=== PATIENT | female | born 1950 | race Caucasian/White ===

== ENCOUNTER 2019-07-12 13:35 | Observation (INO) ==
[2019-07-12 14:19] LABS: Basophils # 0.1 10*3/uL (0.0-0.2); Basophils % 0.7 % (0.0-0.8); Eosinophils # 0.2 10*3/uL (0.0-0.87); Eosinophils % 2.5 % (0.00-10.9); Hematocrit 41.3 VOL% (35.7-47.0); Hemoglobin 12.7 GM/DL (12.0-16.0); Lymphocytes % 40.5 % (21.3-54.2); Mean Corpuscular HGB Conc 30.8 GM/DL (32-36); Mean Corpuscular Volume 80.5 FL (87-102); Monocytes % 6.1 % (1.7-12.7); Neutrophils % 50.2 % (38.7-73.9); Platelet Count 190 T/CUMM (130-400); Red Blood Count 5.13 MC/CUMM (3.8-5.5); Red Cell Distribution Width 25.1 % (9.3-17.3); White Blood Count 7.5 T/CUMM (4-12)
[2019-07-12 14:36] LABS: Alanine Aminotransferase 25 U/L (13-56); Albumin 3.8 G/DL (3.4-5.0); Alkaline Phosphatase 83 U/L (45-117); Aspartate Amino Transferase 18 U/L (0-37); Bilirubin,Total < 0.39 MG/DL (0.2-1.0); Blood Urea Nitrogen 15 MG/DL (7-18); Calcium 9.8 MG/DL (8.5-10.1); Estimated Glom Filtration Rate 71 ML/MIN; Glucose 98 MG/DL (74-106); Total Protein 8.1 G/DL (6.4-8.3); Troponin I < 0.015 NG/ML (0.00-0.045)
[2019-07-12 15:59] LABS: Hypochromasia Slight; Microcytosis Slight
[2019-07-12 16:00] LABS: Platelet Estimate Adequate; Stomatocytes Slight
[2019-07-12] MEDS ORDERED: BISACODYL 5 MG TABLET PO PRN (16:05)
[2019-07-12] MEDS ORDERED: MAGNESIUM SULF RIDER 4 GM in PREMIX 1 EACH IV PRN (16:05)
[2019-07-12] MEDS ORDERED: POTASSIUM CHLORIDE 20 MEQ TABLET PO PRN (16:05)
[2019-07-12] MEDS ORDERED: MAGNESIUM SULF RIDER 2 GM in PREMIX 1 EACH IV PRN (16:05)
[2019-07-12] MEDS ORDERED: ONDANSETRON 4 MG/2 ML VIAL IV PRN (16:05)
[2019-07-12] MEDS ORDERED: ZALEPLON 5 MG CAPSULE PO PRN (16:05)
[2019-07-12] MEDS ORDERED: ALBUTEROL 2.5 MG/3 ML NEB RESP TX PRN (17:10)
[2019-07-12] MEDS ORDERED: NITROGLYCERIN SL 0.4 MG TABLET SL PRN (17:10)
[2019-07-12] MEDS ORDERED: KETOROLAC 30 MG/1 ML VIAL IV ONE (17:11)
[2019-07-12] MEDS ORDERED: hydrALAZINE 20 MG/1 ML VIAL IV PRN (17:14)
[2019-07-12] MEDS ORDERED: INFLUENZA VIRUS VACCINE 0.5 ML SYRINGE IM ONE (18:17)
[2019-07-12] MEDS ORDERED: PNEUMOCOCCAL VACCINE (13 VALENT) 0.5 ML SYRINGE IM ONE (18:17)
[2019-07-12 19:30] LABS: Troponin I < 0.015 NG/ML (0.00-0.045)
[2019-07-12] MEDS: PANTOPRAZOLE 40 MG TABLET PO SCH ×2 (21:16→21:25)
[2019-07-12] MEDS: ROSUVASTATIN 10 MG TABLET PO SCH ×2 (21:16→21:22)
[2019-07-12] MEDS: FERROUS SULFATE 325 MG TABLET PO SCH (21:16)
[2019-07-12] MEDS: ENOXAPARIN 40 MG/0.4 ML SYRINGE SUBCUT SCH ×2 (21:17→21:27)
[2019-07-12 22:08] LABS: Troponin I < 0.015 NG/ML (0.00-0.045)
[2019-07-13] MEDS: ACETAMINOPHEN 325 MG TABLET PO PRN ×2 (00:39→09:56)
[2019-07-13 04:56] LABS: Basophils # 0.1 10*3/uL (0.0-0.2); Basophils % 1.3 % (0.0-0.8); Eosinophils # 0.2 10*3/uL (0.0-0.87); Eosinophils % 3.9 % (0.00-10.9); Hematocrit 39.6 VOL% (35.7-47.0); Hemoglobin 12.1 GM/DL (12.0-16.0); Immature Granulocytes % 0.2 %; Immature Granulocytes Absolute 0.01 #; Lymphocytes # 2.2 10*3/uL (1.4-4.0); Lymphocytes % 35.3 % (21.3-54.2); Mean Corpuscular HGB Conc 30.6 GM/DL (32-36); Mean Corpuscular Volume 79.2 FL (87-102); Mean Platelet Volume 11.5 FL (9.6-12.0); Monocytes % 8.7 % (1.7-12.7); Neutrophils % 50.6 % (38.7-73.9); Platelet Count 171 T/CUMM (130-400); White Blood Count 6.2 T/CUMM (4-12)
[2019-07-13 05:17] LABS: Platelet Estimate Adequate
[2019-07-13 05:18] LABS: Hypochromasia 1+; Microcytosis Slight
[2019-07-13 05:29] LABS: Calcium 9.2 MG/DL (8.5-10.1); Osmolality,Calculated 282.3 MOS/KG (273-304); Risk Ratio 2.57; VLDL CHOLESTEROL 13.2 MG/DL
[2019-07-13] MEDS ORDERED: ASPIRIN EC 81 MG TABLET PO SCH (09:00)
[2019-07-13] MEDS ORDERED: CHOLECALCIFEROL 1,000 UNIT TABLET PO SCH (09:00)
[2019-07-13] MEDS ORDERED: OLMESARTAN 20 MG TABLET PO SCH ×3 (09:00→09:21)
[2019-07-13] MEDS: FERROUS SULFATE 325 MG TABLET PO SCH (09:52)
[2019-07-13] MEDS: PANTOPRAZOLE 40 MG TABLET PO SCH (09:53)
[2019-07-13 12:22] VITALS: BP 146/59
[2019-07-14] MEDS ORDERED: CLOPIDOGREL 75 MG TABLET PO SCH (08:00)
== END 2019-07-13 13:12 | disposition home or self-care (01) ==
LOC: N.EDINP 13:35 → N.ED 13:35 → N.2W 17:32
PROVIDERS: ADMIT Internal Medicine Cardiovascular Disease; ATTEND Internal Medicine Cardiovascular Disease